=== PATIENT | female | born 1985 | race Caucasian/White ===

== ENCOUNTER 2016-12-20 20:17 | Emergency (ER) | payer SELFPAY ==
[~2016-12-20 20:17] MED LIST: MMW SS
[2016-12-20 20:19] VITALS: BP 171/103; PULSE 89; RESP 18; TEMP 98.7; O2SAT 98
[2016-12-20] MEDS ORDERED: ZITHTAB PO (21:43)
[2016-12-20] MEDS ORDERED: PRED50 PO (21:43)
[2016-12-20] MEDS ORDERED: VENTAER INH (21:43)
--- NOTE | 2016-12-20 21:43 | PD ---
HPI Chief Complaint: Cold / Flu Symptoms Time Seen by Provider: 21:28 Travel History International Travel<30 days: No Contact w/Intl Traveler<30days: No Traveled to known affect area: No History of Present Illness HPI 31-year-old female here for evaluation of cough, nasal congestion, shortness of breath. Symptoms of it going on for last 9 days. Today the patient feels even more congested and has been coughing up greenish sputum. No hemoptysis. She has had intermittent fevers and chills. No abdominal pain, nausea, vomiting, or diarrhea. PFSH Past Medical History Anemia: Yes Asthma: No Autoimmune Disease: No COPD: No Diminished Hearing: No Diverticulitis: Yes Musculoskeletal: Yes (SCOLIOSIS) Immunizations Current: Yes Tetanus Vaccination: Unknown Influenza Vaccination: No ?: Not LMP: 12/11/16 Ectopic : Yes Tubal Ligation: Yes Past Surgical History Cholecystectomy: Yes Social History Alcohol Use: Yes (SOCIALLY) Tobacco Use: No Substance Use: No Allergies-Medications (Allergen,Severity, Reaction): Coded Allergies: No Known Allergies (Verified , 12/20/16) Reported Meds & Prescriptions Reported Meds & Active Scripts Active Review of Systems Except as stated in HPI: all other systems reviewed are Neg Physical Exam Narrative GENERAL: Well-developed, well-nourished, comfortable, no apparent distress. SKIN: Focused skin assessment warm/dry. No petechiae. No rash. HEAD: Atraumatic. Normocephalic. EYES: Pupils equal and round. No scleral icterus. No injection or drainage. ENT: Mucous membranes pink and moist. Bilateral tympanic members and external auditory canals are normal. Normal pharynx. NECK: Trachea midline. No JVD. No nuchal rigidity. CARDIOVASCULAR: Regular rate and rhythm. No murmur appreciated. RESPIRATORY: No accessory muscle use. Clear to auscultation. Breath sounds equal bilaterally. GASTROINTESTINAL: Abdomen soft, non-tender, nondistended. MUSCULOSKELETAL: No obvious deformities. No clubbing. No cyanosis. No edema. NEUROLOGICAL: Awake and alert. No obvious cranial nerve deficits. Motor grossly within normal limits. Normal speech. PSYCHIATRIC: Appropriate mood and affect; insight and judgment normal. Data Data Last Documented VS Vital Signs Date Time Temp Pulse Resp B/P Pulse Ox O2 Delivery O2 Flow Rate FiO2 12/20/16 21:10 18 12/20/16 20:19 98.7 89 171/103 98 Room Air [facility] Medical Decision Making Medical Screen Exam Complete: Yes Emergency Medical Condition: Yes Medical Record Reviewed: Yes Differential Diagnosis Sinusitis, bronchitis, URI, pneumonia Narrative Course Vital signs show heart rate 89, blood pressure 171/103, pulse ox 98% on room air , oral temp of 98.7F. Patient signs and symptoms are consistent with sinusitis and possible bronchitis. Symptoms have been going on for last 9 days. Overall she is very comfortable, no respiratory distress. Lung sounds are clear and equal bilaterally. Plan is to start the patient on a Z-Rajat, prednisone, and albuterol inhaler. She is stable for discharge home with outpatient follow-up with a primary care physician this week. She was informed on when to return to the emergency department. She verbalizes understanding and agreement with plan. Diagnosis Primary Impression: Sinusitis Qualified Code: J01.90 - Subacute sinusitis, unspecified location Additional Impression: Bronchitis Referrals: Primary Care Physician 3 days Additional Instructions: Follow-up with a primary care physician this week. Return to the emergency department for worsening symptoms or any other concerns. Scripts Albuterol 18 GM Inh (Ventolin Hfa 18 GM Inh)90 Mcg/Act Aer2 Puff INH Q4-6H PRN ( SHORTNESS OF BREATH) #1 INHALER Ref 0 Prov:Yon Singh MD 12/20/16 Prednisone 50 Mg Tab50 Mg PO DAILY 5 Days Ref 0 Prov:Yon Singh MD 12/20/16 Azithromycin (Zithromax Z-Rajat)250 Mg Orvd096 Mg PO DIRECTED #1 DSPK Ref 0 500 MG (2 tabs) day 1, then 1 tab days 2-5. Prov:Yon Singh MD 12/20/16 Disposition: 01 DISCHARGE HOME Condition: Stable Yon Singh MD Dec 20, 2016 21:43
[2016-12-20] MEDS ORDERED: AZITHROMYCIN 250 MG TAB PO ONE (21:45)
[2016-12-20] MEDS ORDERED: predniSONE 50 MG TAB PO ONE (21:45)
== END 2016-12-20 22:13 | disposition home or self-care (01) ==
LOC: NEPD 20:17
DX: J32.9 Chronic sinusitis, unspecified (principal); J40 Bronchitis, not specified as acute or chronic; D64.9 Anemia, unspecified
CPT/HCPCS: 99284; J7512

== ENCOUNTER 2017-02-13 17:18 | Emergency (ER) | payer SELFPAY ==
[~2017-02-13] VITALS: Ht 170.2 cm; Wt 100.0 kg
[~2017-02-13 17:18] MED LIST changes: -MMW SS; +PRED50 PO; +VENTAER INH; +ZITHTAB PO
[2017-02-13 17:19] VITALS: BP 177/97; PULSE 66; RESP 14; TEMP 98.5; O2SAT 100
--- NOTE | 2017-02-13 17:33 | PD ---
Physical Exam Date Seen by Provider: Feb 13, 2017 Time Seen by Provider: 17:32 Narrative 31 YOWF C/O UPPER ABD PAIN.TIMES 2 WEEKS H/O DIVERTICULITIS VS REVIEWED WAITING FOR BED PLACEMENT Data Data Last Documented VS Vital Signs Date Time Temp Pulse Resp B/P Pulse Ox O2 Delivery O2 Flow Rate FiO2 02/13/17 17:19 98.5 66 14 177/97 100 Room Air MDM Supervised Visit with ZULMA: Adarsh Garcia Feb 13, 2017 17:33
[2017-02-13] MEDS ORDERED: NEXI40CA PO (20:33)
[2017-02-13] MEDS ORDERED: CLON0.2T PO (20:33)
[2017-02-13 20:36] VITALS: BP 170/114; PULSE 65; RESP 18; TEMP 98.3; O2SAT 100
--- NOTE | 2017-02-13 20:37 | PD ---
HPI . abdominal pain x 1 month Chief Complaint: Abdominal Pain Time Seen by Provider: 20:37 Travel History International Travel<30 days: No Contact w/Intl Traveler<30days: No Traveled to known affect area: No History of Present Illness HPI 31- year old female presents to the ED complaining of abdominal pain that is currently a 9/10. The patient reports that she had abdominal pain in her LLQ and epigastric areas for the past month, however, reports that the pain has been getting worse this week. She reports that she has nausea and vomiting for the past week. She states she eats barely one bite of food and then is full. She reports a bowel movement this morning, but she fluctuates between diarrhea and constipation. She has tried Tylenol, Aleve, and Advil for the pain but had no relief. She denies any vaginal discharge. Her last menstrual period is reported to be two weeks ago. The patient reports that she moved here from [place] last year and has been unable to follow up with a primary care provider in the area. She reports a history of a cholecystectomy, ectopic , tubal ligation, left ovary removal and diverticulosis. PFSH Past Medical History Anemia: Yes Asthma: No Autoimmune Disease: No COPD: No Diminished Hearing: No Diverticulitis: Yes Hypertension: Yes Musculoskeletal: Yes (SCOLIOSIS) Immunizations Current: Yes ?: Not Ectopic : Yes Tubal Ligation: Yes Past Surgical History Cholecystectomy: Yes Social History Alcohol Use: Yes (SOCIALLY) Tobacco Use: No Substance Use: No Allergies-Medications (Allergen,Severity, Reaction): Coded Allergies: No Known Allergies (Verified , 02/13/17) Reported Meds & Prescriptions Reported Meds & Active Scripts Active Zofran Odt (Ondansetron Odt) 4 Mg Tab 4 Mg SL Q8HR PRN Reported Clonidine (Clonidine HCl) 0.2 Mg Tab 0.2 Mg PO BID Nexium (Esomeprazole DR) 40 Mg Capdr 40 Mg PO DAILY Review of Systems General / Constitutional: No: Fever, Chills, Weight Gain, Weight Loss, Other Eyes: No: Diploplia, Blurred Vision, Photophobia, Drainage, Redness, Foreign Body Sensation, Pain, Tearing, Blind Spots, Visual changes, Blindness, Other HENT: No: Headaches, Vertigo, Lightheadedness, Sore Throat, Rhinitis, Rhinorrhea, Congestion, Nosebleed, Neck Stiffness, Neck Pain, Masses, Gingival Bleeding, Dental Difficulties, Ear Discharge, Earache, Other Cardiovascular: No: Chest Pain or Discomfort, Palpitations, Irregular Rhythm, Tachycardia, Diaphoresis, Syncope, Dyspnea on exertion, Varicosities, Edema, Cyanosis, Varicosities, Phlebitis, Claudication, Other Respiratory: No: Cough, Shortness of Breath, Wheezing, Sneezing, Orthopnea, Hemoptysis, Stridor, Night Sweats, Pleuritic Pain, Other Gastrointestinal: Positive: Nausea, Vomiting, Diarrhea, Abdominal Pain, Constipation, Other (Early satiety ) Genitourinary: No: Urgency, Frequency, Dysuria, Nocturia, Hematuria, Decreased Urinary Output, Oliguria, Hesitancy, Dribbling, Incontinence, Pelvic Pain, Flank Pain, Dyspareunia, Discharge, Dysmenorrhea, Menorrhagia, Metorrhagia, Vaginal Bleeding, Other Musculoskeletal: No: Myalgias, Arthralgias, Limited ROM, Weakness, Cramping, Edema, Pain, Atrophy, Other Skin: No Rash, No Itching, No Dryness, No Lumps, No Hives, No Change in Pigmentation, No Change in nails, No Alopecia, No Lesions, No Breast Lumps, No Breast Tenderness, No Breast Swelling, No Other Neurologic: No: Weakness, Dizziness, Syncope, Focal Abnormalities, Coordination Problem, Tremor, Ataxia, Headache, Change in Mentation, Slurred Speech, Paresthesia, Incontinence, Seizures, Sensory Disturbance, Other Psychiatric: No: Anxiety, Depression, Suicidal Ideations, Disorder of Thought, Mood Disorder, Substance Abuse, Homicidal Ideation, Other Endocrine: No: Heat Intolerance, Cold Intolerance, Polyuria, Polydipsia, Other Hematologic/Lymphatic: No: Easy Bruising, Lymph Node Enlargement, Other Physical Exam Narrative GENERAL: Appears comfortable in no signs of distress SKIN: Warm and dry. HEAD: Atraumatic. Normocephalic. EYES: Pupils equal and round. No scleral icterus. No injection or drainage. ENT: No nasal bleeding or discharge. Mucous membranes pink and moist. NECK: Trachea midline. No JVD. CARDIOVASCULAR: Regular rate and rhythm. No S3, S4, or murmurs. RESPIRATORY: No accessory muscle use. Clear to auscultation. Breath sounds equal bilaterally. No wheezing, rales, or rhonchi. GASTROINTESTINAL: Abdomen soft, non-tender, nondistended. No rebound or guarding. No Bailey sign or McBurney's point tenderness MUSCULOSKELETAL: Extremities without clubbing, cyanosis, or edema. No obvious deformities. NEUROLOGICAL: Awake and alert. No obvious cranial nerve deficits. Motor grossly within normal limits. Five out of 5 muscle strength in the arms and legs. Normal speech. PSYCHIATRIC: Appropriate mood and affect; insight and judgment normal. Data Data Last Documented VS Vital Signs Date Time Temp Pulse Resp B/P Pulse Ox O2 Delivery O2 Flow Rate FiO2 02/13/17 20:57 96 Room Air 02/13/17 20:36 98.3 65 18 170/114 Orders Complete Blood Count With Diff (02/13/17 20:40) Comprehensive Metabolic Panel (02/13/17 20:40) Lipase (02/13/17 20:40) Urinalysis - C+S If Indicated (02/13/17 20:40) Iv Access Insert/Monitor (02/13/17 20:40) Ecg Monitoring (02/13/17 20:40) Oximetry (02/13/17 20:40) Sodium Chloride 0.9% Flush (Ns Flush) (02/13/17 20:45) Ed Urine Pregnancytest Poc (02/13/17 20:40) Ct Abd/Pel W Iv Contrast(Rout) (02/13/17 20:43) Drug Screen, Random Urine (02/13/17 20:47) Iohexol 350 Inj (Omnipaque 350 Inj) (02/13/17 21:45) Ketorolac Inj (Toradol Inj) (02/13/17 22:15) Ondansetron Inj (Zofran Inj) (02/13/17 22:15) Labs Laboratory Tests Test 02/13/17 20:53 White Blood Count 8.4 TH/MM3 Red Blood Count 4.53 MIL/MM3 Hemoglobin 14.3 GM/DL Hematocrit 43.1 % Mean Corpuscular Volume 95.0 FL Mean Corpuscular Hemoglobin 31.5 PG Mean Corpuscular Hemoglobin 33.1 % Concent Red Cell Distribution Width 12.9 % Platelet Count 333 TH/MM3 Mean Platelet Volume 7.1 FL Neutrophils (%) (Auto) 66.9 % Lymphocytes (%) (Auto) 24.1 % Monocytes (%) (Auto) 6.2 % Eosinophils (%) (Auto) 2.3 % Basophils (%) (Auto) 0.5 % Neutrophils # (Auto) 5.6 TH/MM3 Lymphocytes # (Auto) 2.0 TH/MM3 Monocytes # (Auto) 0.5 TH/MM3 Eosinophils # (Auto) 0.2 TH/MM3 Basophils # (Auto) 0.0 TH/MM3 CBC Comment DIFF FINAL Differential Comment Urine Color YELLOW Urine Turbidity HAZY Urine pH 7.0 Urine Specific [place] 1.024 Urine Protein TRACE mg/dL Urine Glucose (UA) NEG mg/dL Urine Ketones NEG mg/dL Urine Occult Blood NEG Urine Nitrite NEG Urine Bilirubin NEG Urine Urobilinogen 2.0 MG/DL Urine Leukocyte Esterase NEG Urine RBC 14 /hpf Urine WBC 2 /hpf Urine Squamous Epithelial 5 /hpf Cells Urine Bacteria RARE /hpf Urine Mucus FEW /lpf Microscopic Urinalysis Comment CULT NOT INDICATED Sodium Level 137 MEQ/L Potassium Level 3.6 MEQ/L Chloride Level 102 MEQ/L Carbon Dioxide Level 30.1 MEQ/L Anion Gap 5 MEQ/L Blood Urea Nitrogen 9 MG/DL Creatinine 0.58 MG/DL Estimat Glomerular Filtration 120 ML/MIN Rate Random Glucose 80 MG/DL Calcium Level 8.8 MG/DL Total Bilirubin 0.5 MG/DL Aspartate Amino Transf 119 U/L (AST/SGOT) Alanine Aminotransferase 93 U/L (ALT/SGPT) Alkaline Phosphatase 101 U/L Total Protein 7.1 GM/DL Albumin 3.5 GM/DL Lipase 128 U/L Urine Opiates Screen NEG Urine Barbiturates Screen NEG Urine Amphetamines Screen NEG Urine Benzodiazepines Screen NEG Urine Cocaine Screen NEG Urine Cannabinoids Screen POS [facility] Medical Decision Making Medical Screen Exam Complete: Yes Emergency Medical Condition: Yes Medical Record Reviewed: Yes Differential Diagnosis Diverticulitis Colitis Gastroenteritis UTI Ovarian cyst Narrative Course 31-year-old female here with abdominal pain for one month. On examination there are no gross abnormalities. IV access obtained. Patient placed on continuous cardiac and pulse oximetry monitoring. Labs, urine and CT scan of abdomen and pelvis ordered. Last Impressions Abdomen/Pelvis CT 02/13/172042 Signed Impressions: Service Date/Time: Monday, February 13, 2017 21:28 - CONCLUSION: 1. Hepatic steatosis. 2. Mildly focally distended small bowel in the left upper quadrant involving the jejunum. 3. Mild cystic change of the ovaries being more prominent left. Joselito Nicole MD Laboratory Tests Test 02/13/17 20:53 White Blood Count 8.4 TH/MM3 Red Blood Count 4.53 MIL/MM3 Hemoglobin 14.3 GM/DL Hematocrit 43.1 % Mean Corpuscular Volume 95.0 FL Mean Corpuscular Hemoglobin 31.5 PG Mean Corpuscular Hemoglobin 33.1 % Concent Red Cell Distribution Width 12.9 % Platelet Count 333 TH/MM3 Mean Platelet Volume 7.1 FL Neutrophils (%) (Auto) 66.9 % Lymphocytes (%) (Auto) 24.1 % Monocytes (%) (Auto) 6.2 % Eosinophils (%) (Auto) 2.3 % Basophils (%) (Auto) 0.5 % Neutrophils # (Auto) 5.6 TH/MM3 Lymphocytes # (Auto) 2.0 TH/MM3 Monocytes # (Auto) 0.5 TH/MM3 Eosinophils # (Auto) 0.2 TH/MM3 Basophils # (Auto) 0.0 TH/MM3 CBC Comment DIFF FINAL Differential Comment Urine Color YELLOW Urine Turbidity HAZY Urine pH 7.0 Urine Specific [place] 1.024 Urine Protein TRACE mg/dL Urine Glucose (UA) NEG mg/dL Urine Ketones NEG mg/dL Urine Occult Blood NEG Urine Nitrite NEG Urine Bilirubin NEG Urine Urobilinogen 2.0 MG/DL Urine Leukocyte Esterase NEG Urine RBC 14 /hpf Urine WBC 2 /hpf Urine Squamous Epithelial 5 /hpf Cells Urine Bacteria RARE /hpf Urine Mucus FEW /lpf Microscopic Urinalysis Comment CULT NOT INDICATED Sodium Level 137 MEQ/L Potassium Level 3.6 MEQ/L Chloride Level 102 MEQ/L Carbon Dioxide Level 30.1 MEQ/L Anion Gap 5 MEQ/L Blood Urea Nitrogen 9 MG/DL Creatinine 0.58 MG/DL Estimat Glomerular Filtration 120 ML/MIN Rate Random Glucose 80 MG/DL Calcium Level 8.8 MG/DL Total Bilirubin 0.5 MG/DL Aspartate Amino Transf 119 U/L (AST/SGOT) Alanine Aminotransferase 93 U/L (ALT/SGPT) Alkaline Phosphatase 101 U/L Total Protein 7.1 GM/DL Albumin 3.5 GM/DL Lipase 128 U/L Labs and imaging have been reviewed. I discussed the case with my attending physician Dr. Ohara. On examination patient does not have any tenderness. He is not impressed with the CT findings. We recommend outpatient f/u. Discussed with patient. I will provide zofran upon discharge. Tylenol or Motrin PRN pain. Patient verbalized understanding of instructions, questions were answered, and thanked me for their care. I advised them if their condition worsens, please return to the nearest emergency room for further care. Diagnosis Primary Impression: Abdominal pain Qualified Code: R10.32 - Left lower quadrant pain Patient Instructions: General Instructions Additional Instructions: Please follow up with your primary care provider for further workup and treatment. Take medications as prescribed. Med/Other Pt SpecificInfo: Prescription(s) given Scripts Ondansetron Odt (Zofran Odt)4 Mg Tab4 Mg SL Q8HR PRN (Nausea/Vomiting) #15 TAB Ref 0 Prov:Harshad Ohara MD 02/13/17 Disposition: 01 DISCHARGE HOME Condition: Stable Jada Leblanc Feb 13, 2017 20:37
[2017-02-13] MEDS ORDERED: SODIUM CHLORIDE 0.9% FLUSH 10 ML FLUSH IV FLUSH PRN (20:45)
[2017-02-13 20:57] VITALS: O2SAT 96
[2017-02-13 21:22] LABS: AUTOMATED NEUTROPHIL # 5.6 TH/MM3 (1.8-7.7); BACTERIA, URINE RARE /hpf; BASOPHIL % 0.5 % (0.0-2.0); BLOOD, URINE NEG (NEG); COMMENT (UR) CULT NOT INDICATED; CULTURE IF INDICATED CULT NOT INDICATED; EOSINOPHIL # 0.2 TH/MM3 (0-0.4); EOSINOPHIL % 2.3 % (0.0-4.0); GLUCOSE,URINE NEG (NEG); HEMATOCRIT 43.1 % (35.0-46.0); HEMO FLAGS DIFF FINAL; KETONE, URINE NEG (NEG); LYMPH % 24.1 % (9.0-44.0); MEAN CORPUSCULAR HEMOGLOBIN 31.5 PG (27.0-34.0); MEAN CORPUSCULAR HGB CONC 33.1 % (32.0-36.0); MONO % 6.2 % (0.0-8.0); MUCUS URINE FEW /lpf (OCC); NEUT % 66.9 % (16.0-70.0); NITRITE,URINE NEG (NEG); PLATELET COUNT 333 TH/MM3 (150-450); RED BLOOD COUNT 4.53 MIL/MM3 (4.00-5.30); RED CELL DISTRIBUTION WIDTH 12.9 % (11.6-17.2); SQUAMOUS EPITHELIAL CELL URINE 5 /hpf (0-5); URINE COLOR YELLOW (YELLW/STRAW); WHITE BLOOD COUNT 8.4 TH/MM3 (4.0-11.0)
[2017-02-13 21:40] LABS: ANION GAP 5 MEQ/L (5-15); AST (GOT) 119 U/L (15-37); BICARBONATE 30.1 MEQ/L (21.0-32.0); BLOOD UREA NITROGEN 9 MG/DL (7-18); CHLORIDE 102 MEQ/L (98-107); GLOMERULAR FILTRATION RATE 120 ML/MIN (>89); POTASSIUM 3.6 MEQ/L (3.5-5.1); SODIUM (NA) 137 MEQ/L (136-145)
[2017-02-13 21:41] LABS: ALT (GPT) 93 U/L (10-53)
[2017-02-13 21:43] LABS: ALKALINE PHOSPHATASE 101 U/L (45-117); TOTAL BILIRUBIN ADULT 0.5 MG/DL (0.2-1.0)
[2017-02-13] MEDS ORDERED: IOHEXOL 350 MG/ML 10 ML VIAL (for RAD DIAG) IV ONE (21:45)
--- NOTE | 2017-02-13 22:13 | RADRPT ---
EXAM DATE/TIME: 02/13/2017 21:28 [facility] COMPARISON: No previous studies available for comparison. INDICATIONS : Diffuse abdominal pain, nausea and vomiting. IV CONTRAST: 100 cc Omnipaque 350 (iohexol) IV ORAL CONTRAST: No oral contrast ingested. RADIATION DOSE: 13.9 CTDIvol (mGy) MEDICAL HISTORY : Hypertension. Diverticulitis. SURGICAL HISTORY : Cholecystectomy. Tubal ligation. ENCOUNTER: Initial ACUITY: 2 weeks PAIN SCALE: 9/10 LOCATION: All quadrants. TECHNIQUE: Volumetric scanning of the abdomen and pelvis was performed. Using automated exposure control and ad justment of the mA and/or kV according to patient size, radiation dose was kept as low as reasonably achievable to obtain optimal diagnostic quality images. DICOM format image data is available electro nically for review and comparison. FINDINGS: LOWER LUNGS: The visualized lower lungs are clear. LIVER: There is diffuse decreased attenuation to the liver without focal masses. The patient is status post cholecystectomy. SPLEEN: Normal size without lesion. PANCREAS: Within normal limits. KIDNEYS: Normal in size and shape. There is no mass, stone or hydronephrosis. ADRENAL GLANDS: Within normal limits. VASCULAR: There is no aortic aneurysm. BOWEL/MESENTERY: There is a mild hiatal hernia. There is focal mildly distended small bowel in the left upper quadrant measuring up to 3.5 cm. ABDOMINAL WALL: Within normal limits. RETROPERITONEUM: There is no lymphadenopathy. BLADDER: No wall thickening or mass. REPRODUCTIVE: The left ovary appears somewhat prominent measuring 3.5 cm with cystic change. The right ovary is nor mal in size with minimal cystic change. The uterus is unremarkable. INGUINAL: There is no lymphadenopathy or hernia. MUSCULOSKELETAL: There is a levocurvature of the lower thoracic and lumbar spine. CONCLUSION: 1. Hepatic steatosis. 2. Mildly focally distended small bowel in the left upper quadrant involving the jejunum. 3. Mild cystic change of the ovaries being more prominent left. Joselito Nicole MD on February 13, 2017 at 22:06 Board Certified Radiologist. This report was verified electronically.
[2017-02-13] MEDS ORDERED: ONDANSETRON HCL 4 MG/2 ML VIAL IV PUSH ONE (22:15)
[2017-02-13] MEDS ORDERED: KETOROLAC TROMETHAMINE 30 MG/ML (IVP) VIAL IV PUSH ONE (22:15)
[2017-02-13] MEDS ORDERED: ZOFR4TAB3 SL (22:28)
== END 2017-02-13 23:07 | disposition home or self-care (01) ==
LOC: NEPC 17:18
DX: R10.32 Left lower quadrant pain (principal); I10 Essential (primary) hypertension; Z90.49 Acquired absence of other specified parts of digestive tract
CPT/HCPCS: 74177; 80053; 80307; 81001; 83690; 84703; 85025; 96374; 96375; 99285; J1885; J2405; Q9967

== ENCOUNTER 2017-06-13 09:00 | Emergency (ER) | payer SELFPAY ==
[~2017-06-13 09:00] MED LIST changes: +CLON0.2T PO; +NEXI40CA PO; -PRED50 PO; -VENTAER INH; -ZITHTAB PO; +ZOFR4TAB3 SL
[2017-06-13 09:11] VITALS: BP 173/95; PULSE 74; RESP 18; TEMP 98.1; O2SAT 100
[2017-06-13] MEDS ORDERED: HYDROcodone 5 MG/HOMATROPINE 1.5 MG SYRUP 5 ML CUP PO ONE (09:45)
--- NOTE | 2017-06-13 09:48 | RADRPT ---
EXAM DATE/TIME: 06/13/2017 09:33 [facility] COMPARISON: No previous studies available for comparison. INDICATIONS : Cough x 10 days. MEDICAL HISTORY : Hypertension. Diverticulitis. SURGICAL HISTORY : Cholecystectomy. Tubal ligation. ENCOUNTER: Initial ACUITY: 1 day PAIN SCORE: 0/10 LOCATION: Bilateral chest FINDINGS: PA and lateral views of the chest demonstrate the lungs to be symmetrically aerated without evidence of mass, infiltrate or effusion. The cardiomediastinal contours are unremarkable. Thoracic scoliosis is noted. Osseous structures are otherwise intact. CONCLUSION: No acute disease. Payam Reid MD on June 13, 2017 at 9:45 Board Certified Radiologist. This report was verified electronically.
--- NOTE | 2017-06-13 09:48 | PD ---
HPI Chief Complaint: Respiratory Symptoms Time Seen by Provider: 09:21 Travel History International Travel<30 days: No Contact w/Intl Traveler<30days: No Traveled to known affect area: No History of Present Illness HPI for past 8 days, cough, initially dry now productive of green sputum and over last 2 days crackly voice. patient denies any alleviating/aggravating factors....denies assoc factors of fever/pleitez/cp/abdpain/back pain/n/v/d/ chart and rn notes reviewed pcp: all:nkda divertic, pna denies pshx PFSH Past Medical History Anemia: Yes Asthma: No Autoimmune Disease: No COPD: No Diminished Hearing: No Diverticulitis: Yes Hypertension: Yes Musculoskeletal: Yes (SCOLIOSIS) Immunizations Current: Yes Ectopic : Yes Tubal Ligation: Yes Past Surgical History Cholecystectomy: Yes Social History Alcohol Use: Yes (SOCIALLY) Tobacco Use: No Substance Use: No Allergies-Medications (Allergen,Severity, Reaction): Coded Allergies: No Known Allergies (Verified , 02/13/17) Reported Meds & Prescriptions Reported Meds & Active Scripts Active Zofran Odt (Ondansetron Odt) 4 Mg Tab 4 Mg SL Q8HR PRN Reported Clonidine (Clonidine HCl) 0.2 Mg Tab 0.2 Mg PO BID Nexium (Esomeprazole DR) 40 Mg Capdr 40 Mg PO DAILY Review of Systems Except as stated in HPI: all other systems reviewed are Neg General / Constitutional: No: Fever Eyes: No: Visual changes HENT: No: Headaches Cardiovascular: No: Chest Pain or Discomfort Respiratory: Positive: Cough, Wheezing Gastrointestinal: No: Abdominal Pain Genitourinary: No: Dysuria Musculoskeletal: No: Pain Skin: No Rash Neurologic: No: Weakness Psychiatric: No: Depression Endocrine: No: Polydipsia Hematologic/Lymphatic: No: Easy Bruising Physical Exam Narrative GENERAL: SKIN: Warm and dry. HEAD: Atraumatic. Normocephalic. EYES: Pupils equal and round. No scleral icterus. No injection or drainage. ENT: No nasal bleeding or discharge. Mucous membranes pink and moist. NECK: Trachea midline. No JVD. CARDIOVASCULAR: Regular rate and rhythm. RESPIRATORY: No accessory muscle use. mild scattered wheezes with good tv Breath sounds equal bilaterally. GASTROINTESTINAL: Abdomen soft, non-tender, nondistended. MUSCULOSKELETAL: Extremities without clubbing, cyanosis, or edema. No obvious deformities. NEUROLOGICAL: Awake and alert. No obvious cranial nerve deficits. Motor grossly within normal limits. Five out of 5 muscle strength in the arms and legs. Normal speech. PSYCHIATRIC: Appropriate mood and affect; insight and judgment normal. Data Data Last Documented VS Vital Signs Date Time Temp Pulse Resp B/P (MAP) Pulse Ox O2 Delivery O2 Flow Rate FiO2 06/13/17 09:11 98.1 74 18 173/95 (121) 100 Room Air Orders Orders Chest, Pa & Lat (06/13/17 09:21) Hydrocodone-Homatropine Liq (Hycodan Liq (06/13/17 09:45) MDM Medical Decision Making Medical Screen Exam Complete: Yes Emergency Medical Condition: Yes Medical Record Reviewed: Yes Differential Diagnosis uri v pna v bronchitis v laryngitis Narrative Course patient Diagnosis Primary Impression: Acute laryngitis Additional Impression: Subacute bronchitis Patient Instructions: Acute Bronchitis (ED), General Instructions, Laryngitis ( ED) Scripts Albuterol 18 GM Inh (Ventolin Hfa 18 GM Inh) 90 Mcg/Act Aer 1 PUFF INH Q4H Y for SHORTNESS OF BREATH, #1 INHALER 0 Refills Prov: Harshad Ohara MD 06/13/17 Guaifenesin-Codeine Liq (Guaifenesin AC Liq) 100-10 Mg/5 Ml Syrp 10 ML PO Q4H Y for COUGH, #1 BOTTLE 0 Refills Prov: Harshad Ohara MD 06/13/17 Azithromycin (Zithromax Z-Rajat) 250 Mg Dspk 250 MG PO DIRECTED for Infection, #1 DSPK 0 Refills 500 MG (2 tabs) day 1, then 1 tab days 2-5. Prov: Harshad Ohara MD 06/13/17 Disposition: 01 DISCHARGE HOME Condition: Stable Harshad Ohara MD Jun 13, 2017 09:48
[2017-06-13] MEDS ORDERED: ZITHTAB PO (10:33)
[2017-06-13] MEDS ORDERED: GUAISYP4 PO (10:33)
[2017-06-13] MEDS ORDERED: VENTAER INH (10:33)
== END 2017-06-13 11:16 | disposition home or self-care (01) ==
LOC: NEPD 09:00
DX: J04.0 Acute laryngitis (principal); J20.9 Acute bronchitis, unspecified; I10 Essential (primary) hypertension
CPT/HCPCS: 71020; 99285

== ENCOUNTER 2017-10-08 14:02 | Emergency (ER) | payer SELFPAY ==
[~2017-10-08] VITALS: Ht 170.2 cm; Wt 99.0 kg
[~2017-10-08 14:02] MED LIST changes: +GUAISYP4 PO; +VENTAER INH; +ZITHTAB PO
[2017-10-08 14:32] VITALS: BP 138/91; PULSE 71; RESP 16; TEMP 98.8; O2SAT 96
[2017-10-08] MEDS ORDERED: SODIUM CHLOR 0.9% 1000 ML INJ 1,000 ML IV ONE (14:45)
[2017-10-08] MEDS ORDERED: ONDANSETRON HCL 4 MG/2 ML VIAL IVP ONE (14:45)
[2017-10-08] MEDS ORDERED: SODIUM CHLORIDE 0.9% FLUSH 10 ML FLUSH IVF PRN (14:45)
[2017-10-08 14:59] LABS: BILIRUBIN, URINE NEG (NEG); BLOOD, URINE NEG (NEG); GLUCOSE,URINE 100 mg/dL (NEG); KETONE, URINE 15 mg/dL (NEG); NITRITE,URINE POS (NEG); PH, URINE 6.5 (5.0-8.5); URINE LEUKOCYTE ESTERASE TRACE (NEG)
[2017-10-08 15:02] VITALS: RESP 16; O2SAT 96
--- NOTE | 2017-10-08 15:08 | PD ---
HPI Chief Complaint: Dizziness Time Seen by Provider: 14:36 Travel History International Travel<30 days: No Contact w/Intl Traveler<30days: No Traveled to known affect area: No History of Present Illness HPI 31 yo F c/o nausea and vomiting. Today the patient became lightheaded and disoriented. She reports similar symptoms occurred about 3 days ago. The patient started Cipro last night believing that she might have a urinary tract infection. No loss of consciousness. No chest pain or shortness of breath. No abdominal pain. PFSH Past Medical History Anemia: Yes Asthma: No Autoimmune Disease: No COPD: No Diabetes: No Patient Takes Glucophage: No Diminished Hearing: No Diverticulitis: Yes Hypertension: Yes Musculoskeletal: Yes (SCOLIOSIS) Respiratory: No Immunizations Current: Yes Tetanus Vaccination: Unknown ?: Not LMP: tubal Ectopic : Yes Tubal Ligation: Yes Past Surgical History Cholecystectomy: Yes Social History Alcohol Use: Yes (SOCIALLY) Tobacco Use: No Substance Use: No Allergies-Medications (Allergen,Severity, Reaction): Coded Allergies: No Known Allergies (Verified Adverse Reaction, Unknown, 10/08/17) Reported Meds & Prescriptions Reported Meds & Active Scripts Active Zofran Odt (Ondansetron Odt) 4 Mg Tab 4 Mg SL Q8HR PRN Cipro (Ciprofloxacin HCl) 500 Mg Tab 500 Mg PO BID 3 Days Reported Clonidine (Clonidine HCl) 0.2 Mg Tab 0.2 Mg PO BID Nexium (Esomeprazole DR) 40 Mg Capdr 40 Mg PO DAILY Review of Systems Except as stated in HPI: all other systems reviewed are Neg General / Constitutional: No: Fever Physical Exam Narrative GENERAL: 31-year-old female pleasant well-nourished well-developed Vital Signs Date Time Temp Pulse Resp B/P (MAP) Pulse Ox O2 Delivery O2 Flow Rate FiO2 10/08/17 15:02 16 96 Room Air 10/08/17 14:38 16 96 Room Air 10/08/17 14:32 98.8 71 16 138/91 (107) 96 SKIN: Warm and dry. HEAD: Atraumatic. Normocephalic. EYES: Pupils equal and round. No scleral icterus. No injection or drainage. No nystagmus. ENT: No nasal bleeding or discharge. Mucous membranes pink and moist. NECK: Trachea midline. No JVD. CARDIOVASCULAR: Regular rate and rhythm. RESPIRATORY: No accessory muscle use. Clear to auscultation. Breath sounds equal bilaterally. GASTROINTESTINAL: Abdomen soft, non-tender, nondistended. Hepatic and splenic margins not palpable. MUSCULOSKELETAL: Extremities without clubbing, cyanosis, or edema. No obvious deformities. NEUROLOGICAL: Awake and alert. No obvious cranial nerve deficits. Motor grossly within normal limits. Five out of 5 muscle strength in the arms and legs. Normal speech. PSYCHIATRIC: Appropriate mood and affect; insight and judgment normal. Data Data Last Documented VS Vital Signs Date Time Temp Pulse Resp B/P (MAP) Pulse Ox O2 Delivery O2 Flow Rate FiO2 10/08/17 15:02 16 96 Room Air 10/08/17 14:32 98.8 71 138/91 (107) Orders Orders Urinalysis - C+S If Indicated (10/08/17 14:42) Ed Urine Pregnancytest Poc (10/08/17 14:42) Electrocardiogram (10/08/17 14:45) Basic Metabolic Panel (Bmp) (10/08/17 14:45) Complete Blood Count With Diff (10/08/17 14:45) Ecg Monitoring (10/08/17 14:45) Iv Access Insert/Monitor (10/08/17 14:45) Oximetry (10/08/17 14:45) Ondansetron Inj (Zofran Inj) (10/08/17 14:45) Sodium Chloride 0.9% Flush (Ns Flush) (10/08/17 14:45) Sodium Chlor 0.9% 1000 Ml Inj (Ns 1000 M (10/08/17 14:45) Ceftriaxone Inj (Rocephin Inj) (10/08/17 15:45) Electrocardiogram (10/08/17 ) Ed Discharge Order (10/08/17 16:04) Labs Laboratory Tests Test 10/08/17 14:45 10/08/17 15:00 Urine Color ORANGE Urine Turbidity CLEAR Urine pH 6.5 Urine Specific [place] 1.025 Urine Protein 100 mg/dL Urine Glucose (UA) 100 mg/dL Urine Ketones 15 mg/dL Urine Occult Blood NEG Urine Nitrite POS Urine Bilirubin NEG Urine Urobilinogen 4.0 MG/DL Urine Leukocyte Esterase TRACE Urine RBC 0-3 /hpf Urine WBC 3-5 /hpf Urine Squamous Epithelial Cells 6-8 /hpf Microscopic Urinalysis Comment CULT NOT INDICATED White Blood Count 8.2 TH/MM3 Red Blood Count 4.11 MIL/MM3 Hemoglobin 12.8 GM/DL Hematocrit 37.8 % Mean Corpuscular Volume 92.1 FL Mean Corpuscular Hemoglobin 31.2 PG Mean Corpuscular Hemoglobin Concent 33.9 % Red Cell Distribution Width 11.8 % Platelet Count 320 TH/MM3 Mean Platelet Volume 6.8 FL Neutrophils (%) (Auto) 73.1 % Lymphocytes (%) (Auto) 18.2 % Monocytes (%) (Auto) 6.0 % Eosinophils (%) (Auto) 2.4 % Basophils (%) (Auto) 0.3 % Neutrophils # (Auto) 6.0 TH/MM3 Lymphocytes # (Auto) 1.5 TH/MM3 Monocytes # (Auto) 0.5 TH/MM3 Eosinophils # (Auto) 0.2 TH/MM3 Basophils # (Auto) 0.0 TH/MM3 CBC Comment DIFF FINAL Differential Comment Blood Urea Nitrogen 13 MG/DL Creatinine 0.67 MG/DL Random Glucose 97 MG/DL Calcium Level 8.8 MG/DL Sodium Level 138 MEQ/L Potassium Level 4.0 MEQ/L Chloride Level 105 MEQ/L Carbon Dioxide Level 25.7 MEQ/L Anion Gap 7 MEQ/L Estimat Glomerular Filtration Rate 101 ML/MIN MDM Medical Decision Making Medical Screen Exam Complete: Yes Emergency Medical Condition: Yes Differential Diagnosis Anemia, UTI, metabolic disarray, vertigo Narrative Course CBC & BMP Diagram 10/08/17 15:00 Calcium Level 8.8 EKG shows a sinus rhythm without ischemic injury pattern, rate 70 Urine negative Urinalysis shows a UTI with nitrites The patient received Rocephin and Cipro Zofran and a liter of normal saline. Reassessment at about 4:30 PM revealed patient feeling much better with normal vital signs. Scripts as below. Diagnosis Primary Impression: Nausea & vomiting Qualified Codes: R11.2 - Nausea with vomiting, unspecified Additional Impressions: Lightheadedness UTI (urinary tract infection) Qualified Codes: N30.00 - Acute cystitis without hematuria Referrals: Primary Care Physician 2 days Med/Other Pt SpecificInfo: Prescription(s) given Scripts Ondansetron Odt (Zofran Odt) 4 Mg Tab 4 MG SL Q8HR Y for NAUSEA OR VOMITING, #8 TAB 0 Refills Prov: Rudy Casiano MD 10/08/17 Ciprofloxacin (Cipro) 500 Mg Tab 500 MG PO BID for Infection for 3 Days, #6 TAB 0 Refills Prov: Rudy Casiano MD 10/08/17 Disposition: 01 DISCHARGE HOME Condition: Stable Rudy Casiano MD Oct 08, 2017 15:08
[2017-10-08 15:09] LABS: BASOPHIL % 0.3 % (0.0-2.0); EOSINOPHIL # 0.2 TH/MM3 (0-0.4); EOSINOPHIL % 2.4 % (0.0-4.0); HEMATOCRIT 37.8 % (35.0-46.0); HEMOGLOBIN 12.8 GM/DL (11.6-15.3); LYMPH % 18.2 % (9.0-44.0); LYMPHOCYTE # 1.5 TH/MM3 (1.0-4.8); MEAN CELL VOLUME 92.1 FL (80.0-100.0); MEAN CORPUSCULAR HEMOGLOBIN 31.2 PG (27.0-34.0); MEAN CORPUSCULAR HGB CONC 33.9 % (32.0-36.0); MEAN PLATELET VOLUME 6.8 FL (7.0-11.0); MONOCYTE # 0.5 TH/MM3 (0-0.9); NEUT % 73.1 % (16.0-70.0); PLATELET COUNT 320 TH/MM3 (150-450); RED BLOOD COUNT 4.11 MIL/MM3 (4.00-5.30); RED CELL DISTRIBUTION WIDTH 11.8 % (11.6-17.2); WHITE BLOOD COUNT 8.2 TH/MM3 (4.0-11.0)
[2017-10-08 15:19] LABS: BICARBONATE 25.7 MEQ/L (21.0-32.0); CALCIUM 8.8 MG/DL (8.5-10.1)
[2017-10-08 15:23] LABS: CREATININE 0.67 MG/DL (0.50-1.00)
[2017-10-08 15:25] LABS: URINE COLOR ORANGE (YELLW/STRAW)
[2017-10-08 15:29] LABS: RBC, URINE 0-3 /hpf (0-3)
[2017-10-08] MEDS ORDERED: cefTRIAXone INJ 1,000 MG in SODIUM CHLORIDE 0.9% INJ 100 ML IV ONE (15:45)
[2017-10-08] MEDS ORDERED: CIPR-9 PO (16:06)
[2017-10-08] MEDS ORDERED: ZOFR4TAB3 SL (16:06)
--- NOTE | 2017-10-09 21:34 | EKG ---
Date Performed: 10/08/2017 Time Performed: 15:44:20 PTAGE: 31 years EKG: Sinus rhythm MINIMAL VOLTAGE CRITERIA FOR LVH, CONSIDER NORMAL VARIANT BORDERLINE ECG PREVIOUS TRACING : 10/08/2017 15.27 Since the previous tracing, no significant change noted DOCTOR: Kameron Jones Interpretating Date/Time 10/09/2017 21:33:03
--- NOTE | 2017-10-09 21:35 | EKG ---
Date Performed: 10/08/2017 Time Performed: 15:27:30 PTAGE: 31 years EKG: Sinus rhythm NO PREVIOUS TRACING DOCTOR: Kameron Jones Interpretating Date/Time 10/09/2017 21:34:20
== END 2017-10-08 17:01 | disposition home or self-care (01) ==
LOC: PHED 14:02
DX: R11.2 Nausea with vomiting, unspecified (principal); R42 Dizziness and giddiness; R41.0 Disorientation, unspecified; N39.0 Urinary tract infection, site not specified; D64.9 Anemia, unspecified; I10 Essential (primary) hypertension; M41.9 Scoliosis, unspecified
CPT/HCPCS: 80048; 81001; 84703; 85025; 93005; 96361; 96365; 96375; 99284; J0696; J2405; J7030

== ENCOUNTER 2017-11-12 18:16 | Emergency (ER) | payer SELFPAY ==
[~2017-11-12] VITALS: Ht 170.2 cm; Wt 95.5 kg
[~2017-11-12 18:16] MED LIST changes: +CIPR-9 PO; -GUAISYP4 PO; -VENTAER INH; -ZITHTAB PO
[2017-11-12 18:25] VITALS: BP 177/86; PULSE 62; RESP 18; TEMP 98.8; O2SAT 99
[2017-11-12] MEDS ORDERED: BUPR1SUB SL (18:37)
[2017-11-12] MEDS ORDERED: SODIUM CHLOR 0.9% 1000 ML INJ 1,000 ML IV SCH (18:46)
[2017-11-12 18:51] VITALS: RESP 17; O2SAT 99
[2017-11-12] MEDS ORDERED: LIDOCAINE VISCOUS 2% SOLN 15 ML UDC PO ONE (19:00)
[2017-11-12] MEDS ORDERED: PANTOPRAZOLE SODIUM 40 MG VIAL IVP ONE (19:00)
[2017-11-12] MEDS ORDERED: SODIUM CHLORIDE 0.9% FLUSH 10 ML FLUSH IV FLUSH PRN (19:00)
[2017-11-12] MEDS ORDERED: ONDANSETRON ODT 4 MG TAB PO ONE (19:00)
[2017-11-12] MEDS ORDERED: ALUMINUM/MAGNESIUM/SIMETH 30 ML CUP PO ONE (19:00)
--- NOTE | 2017-11-12 19:00 | PD ---
HPI Chief Complaint: Abdominal Pain Time Seen by Provider: 18:35 Travel History International Travel<30 days: No Contact w/Intl Traveler<30days: No Traveled to known affect area: No History of Present Illness HPI Examined in the presence of a female nurse. 31-year-old female presents for evaluation of abdominal pain. Symptoms started 2 weeks ago. Pain is a sharp pain primarily in the left upper region of her abdomen. Pain is constant with no obvious aggravating or alleviating factors. He does not appear to be postprandial. She endorses associated nausea, vomiting. She reports that she has noticed some blood in her emesis. She reports occasional subjective fevers. Denies dysuria, flank pain, vaginal bleeding or discharge, hematuria, cough, congestion, chest pain or shortness of breath. She reports history of diverticulitis in the past. She reports history of cholecystectomy. She reports that she does use ibuprofen on a daily basis. No known history of peptic ulcer disease or GERD. No known history of pancreatitis. No other complaints. PFSH Past Medical History Anemia: Yes Asthma: No Autoimmune Disease: No Cardiovascular Problems: Yes COPD: No Diabetes: No Diminished Hearing: No Diverticulitis: Yes Gastrointestinal Disorders: Yes Hypertension: Yes Musculoskeletal: Yes (SCOLIOSIS) Respiratory: No Immunizations Current: Yes Tetanus Vaccination: < 5 Years Influenza Vaccination: No ?: Not LMP: 11/05/17 : 4 Para: 4 Miscarriage: 1 Ectopic : Yes Tubal Ligation: Yes Past Surgical History Cholecystectomy: Yes Social History Alcohol Use: Yes (SOCIALLY) Tobacco Use: No Substance Use: No Allergies-Medications (Allergen,Severity, Reaction): Coded Allergies: No Known Allergies (Verified Adverse Reaction, Unknown, 11/12/17) Reported Meds & Prescriptions Reported Meds & Active Scripts Active Zofran (Ondansetron HCl) 4 Mg Tab 4 Mg PO Q6HR PRN Protonix (Pantoprazole Sodium) 40 Mg Tab 40 Mg PO DAILY Reported Zubsolv (Buprenorphine-Naloxone) 5.7-1.4 Mg Subl 1 Tab SL BID Clonidine (Clonidine HCl) 0.2 Mg Tab 0.2 Mg PO BID Nexium (Esomeprazole DR) 40 Mg Capdr 40 Mg PO DAILY Review of Systems Except as stated in HPI: all other systems reviewed are Neg Physical Exam Narrative GENERAL: Well-developed well-nourished female no acute distress SKIN: Warm and dry. HEAD: Atraumatic. Normocephalic. EYES: Pupils equal and round. No scleral icterus. No injection or drainage. ENT: No nasal bleeding or discharge. Mucous membranes pink and moist. NECK: Trachea midline. No JVD. CARDIOVASCULAR: Regular rate and rhythm. No murmur appreciated. RESPIRATORY: No accessory muscle use. Clear to auscultation. Breath sounds equal bilaterally. GASTROINTESTINAL: Abdomen soft, left upper quadrant tenderness to palpation or guarding. MUSCULOSKELETAL: No obvious deformities. No clubbing. No cyanosis. No edema. NEUROLOGICAL: Awake and alert. No obvious cranial nerve deficits. Motor grossly within normal limits. Normal speech. Data Data Last Documented VS Vital Signs Date Time Temp Pulse Resp B/P (MAP) Pulse Ox O2 Delivery O2 Flow Rate FiO2 11/12/17 19:16 68 16 118/57 (77) 98 Room Air 11/12/17 18:25 98.8 Orders Orders Complete Blood Count With Diff (11/12/17 18:46) Comprehensive Metabolic Panel (11/12/17 18:46) Lipase (11/12/17 18:46) Urinalysis - C+S If Indicated (11/12/17 18:46) Ct Abd/Pel W Iv Contrast(Rout) (11/12/17 18:46) Iv Access Insert/Monitor (11/12/17 18:46) Ecg Monitoring (11/12/17 18:46) Oximetry (11/12/17 18:46) Pantoprazole Inj (Protonix Inj) (11/12/17 19:00) Sodium Chlor 0.9% 1000 Ml Inj (Ns 1000 M (11/12/17 18:46) Sodium Chloride 0.9% Flush (Ns Flush) (11/12/17 19:00) Al-Mag Hy-Si 40-40-4 Mg/Ml Liq (Mag-Al P (11/12/17 19:00) Lidocaine 2% Viscous (Xylocaine 2% Visco (11/12/17 19:00) Ed Urine Pregnancytest Poc (11/12/17 18:46) Ondansetron Odt (Zofran Odt) (11/12/17 19:00) Iohexol 350 Inj (Omnipaque 350 Inj) (11/12/17 19:45) Ed Discharge Order (11/12/17 21:21) Labs Laboratory Tests Test 11/12/17 18:50 11/12/17 18:55 White Blood Count 9.7 TH/MM3 Red Blood Count 4.10 MIL/MM3 Hemoglobin 12.8 GM/DL Hematocrit 37.8 % Mean Corpuscular Volume 92.2 FL Mean Corpuscular Hemoglobin 31.1 PG Mean Corpuscular Hemoglobin Concent 33.8 % Red Cell Distribution Width 12.7 % Platelet Count 338 TH/MM3 Mean Platelet Volume 7.4 FL Neutrophils (%) (Auto) 65.1 % Lymphocytes (%) (Auto) 25.3 % Monocytes (%) (Auto) 6.9 % Eosinophils (%) (Auto) 2.1 % Basophils (%) (Auto) 0.6 % Neutrophils # (Auto) 6.3 TH/MM3 Lymphocytes # (Auto) 2.4 TH/MM3 Monocytes # (Auto) 0.7 TH/MM3 Eosinophils # (Auto) 0.2 TH/MM3 Basophils # (Auto) 0.1 TH/MM3 CBC Comment DIFF FINAL Differential Comment Blood Urea Nitrogen 12 MG/DL Creatinine 0.65 MG/DL Random Glucose 94 MG/DL Total Protein 7.8 GM/DL Albumin 3.9 GM/DL Calcium Level 9.3 MG/DL Alkaline Phosphatase 107 U/L Aspartate Amino Transf (AST/SGOT) 148 U/L Alanine Aminotransferase (ALT/SGPT) 116 U/L Total Bilirubin 0.5 MG/DL Sodium Level 140 MEQ/L Potassium Level 4.1 MEQ/L Chloride Level 102 MEQ/L Carbon Dioxide Level 29.1 MEQ/L Anion Gap 9 MEQ/L Estimat Glomerular Filtration Rate 105 ML/MIN Lipase 163 U/L Urine Color LIGHT-YELLOW Urine Turbidity CLEAR Urine pH 7.0 Urine Specific [place] 1.006 Urine Protein NEG mg/dL Urine Glucose (UA) NEG mg/dL Urine Ketones NEG mg/dL Urine Occult Blood NEG Urine Nitrite NEG Urine Bilirubin NEG Urine Urobilinogen LESS THAN 2.0 MG/DL Urine Leukocyte Esterase NEG Urine WBC LESS THAN 1 /hpf Urine Squamous Epithelial Cells <1 /hpf Microscopic Urinalysis Comment CULT NOT INDICATED MDM Medical Decision Making Medical Screen Exam Complete: Yes Emergency Medical Condition: Yes Medical Record Reviewed: Yes Differential Diagnosis Peptic ulcer disease, pancreatitis, colitis, diverticulitis, pyelonephritis Narrative Course Plan is for lab work, urinalysis, CT abdomen and pelvis. She will be given IV fluids, antiemetics, Protonix, GI cocktail. Lab work and imaging studies are reassuring. Liver enzymes are mildly elevated , she has had elevated liver enzymes in the past. CT of the pelvis reveals no acute findings. CT imaging of the abdomen pelvis from January 2017 revealed mild hepatic steatosis, this may be the etiology of her elevated liver enzymes. Her symptoms are most likely secondary to peptic ulcer disease. At this point in time the plan will be to discharge her with Protonix, outpatient GI follow-up. She is agreeable. Diagnosis Primary Impression: Abdominal pain Additional Impression: Elevated liver enzymes Referrals: Jie Flores MD Additional Instructions: Medication as prescribed. Avoid ibuprofen products. Follow-up with a corporate pilot such as Dr. Flores return for any emergent medical conditions. Med/Other Pt SpecificInfo: Prescription(s) given Scripts Ondansetron (Zofran) 4 Mg Tab 4 MG PO Q6HR Y for NAUSEA OR VOMITING, #20 TAB 0 Refills Prov: Donita Diana MD 11/12/17 Pantoprazole (Protonix) 40 Mg Tab 40 MG PO DAILY for Reflux, #30 TAB 0 Refills Prov: Donita Diana MD 11/12/17 Disposition: 01 DISCHARGE HOME Condition: Stable Berry Boland November 12, 2017 19:00
[2017-11-12 19:10] LABS: AUTOMATED NEUTROPHIL # 6.3 TH/MM3 (1.8-7.7); BASOPHIL # 0.1 TH/MM3 (0-0.2); BASOPHIL % 0.6 % (0.0-2.0); EOSINOPHIL # 0.2 TH/MM3 (0-0.4); EOSINOPHIL % 2.1 % (0.0-4.0); HEMATOCRIT 37.8 % (35.0-46.0); HEMOGLOBIN 12.8 GM/DL (11.6-15.3); LYMPH % 25.3 % (9.0-44.0); LYMPHOCYTE # 2.4 TH/MM3 (1.0-4.8); MEAN CELL VOLUME 92.2 FL (80.0-100.0); MEAN CORPUSCULAR HEMOGLOBIN 31.1 PG (27.0-34.0); MEAN CORPUSCULAR HGB CONC 33.8 % (32.0-36.0); MEAN PLATELET VOLUME 7.4 FL (7.0-11.0); MONO % 6.9 % (0.0-8.0); MONOCYTE # 0.7 TH/MM3 (0-0.9); NEUT % 65.1 % (16.0-70.0); PLATELET COUNT 338 TH/MM3 (150-450); RED CELL DISTRIBUTION WIDTH 12.7 % (11.6-17.2); WHITE BLOOD COUNT 9.7 TH/MM3 (4.0-11.0)
[2017-11-12 19:16] VITALS: BP 118/57; PULSE 68; RESP 16; O2SAT 98
[2017-11-12 19:17] LABS: ALBUMIN 3.9 GM/DL (3.4-5.0); AST (GOT) 148 U/L (15-37); BICARBONATE 29.1 MEQ/L (21.0-32.0); BLOOD UREA NITROGEN 12 MG/DL (7-18); CALCIUM 9.3 MG/DL (8.5-10.1); CHLORIDE 102 MEQ/L (98-107); CREATININE 0.65 MG/DL (0.50-1.00); GLOMERULAR FILTRATION RATE 105 ML/MIN (>89); GLUCOSE,RANDOM 94 MG/DL (74-106); SODIUM (NA) 140 MEQ/L (136-145)
[2017-11-12 19:19] LABS: ALT (GPT) 116 U/L (10-53)
[2017-11-12 19:20] LABS: BILIRUBIN, URINE NEG (NEG); BLOOD, URINE NEG (NEG); GLUCOSE,URINE NEG (NEG); KETONE, URINE NEG (NEG); NITRITE,URINE NEG (NEG); SQUAMOUS EPITHELIAL CELL URINE <1 /hpf (0-5); URINE COLOR LIGHT-YELLOW (YELLW/STRAW); URINE LEUKOCYTE ESTERASE NEG (NEG)
[2017-11-12 19:21] LABS: ALKALINE PHOSPHATASE 107 U/L (45-117); TOTAL BILIRUBIN ADULT 0.5 MG/DL (0.2-1.0); TOTAL PROTEIN 7.8 GM/DL (6.4-8.2)
[2017-11-12] MEDS ORDERED: IOHEXOL 350 MG/ML 10 ML VIAL (for RAD DIAG) IVCONTRAST ONE (19:45)
--- NOTE | 2017-11-12 21:11 | RADRPT ---
EXAM DATE/TIME: 11/12/2017 19:54 [facility] COMPARISON: No previous studies available for comparison. INDICATIONS : Left side abdominal pain. IV CONTRAST: 90 cc Omnipaque 350 (iohexol) IV ORAL CONTRAST: No oral contrast ingested. RADIATION DOSE: 16.93 CTDIvol (mGy) MEDICAL HISTORY : Hypertension. Diverticulitis. SURGICAL HISTORY : Cholecystectomy. Tubal ligation. ENCOUNTER: Initial ACUITY: 2 weeks PAIN SCALE: 7/10 LOCATION: Left abdomen. TECHNIQUE: Volumetric scanning of the abdomen and pelvis was performed. Using automated exposure control and ad justment of the mA and/or kV according to patient size, radiation dose was kept as low as reasonably achievable to obtain optimal diagnostic quality images. DICOM format image data is available electro nically for review and comparison. FINDINGS: LOWER LUNGS: The visualized lower lungs are clear. LIVER: Diminished attenuation diffusely suggesting steatosis. No evidence of focal mass or biliary ductal di latation. Gallbladder surgically absent. SPLEEN: Normal size without lesion. PANCREAS: Within normal limits. KIDNEYS: Normal in size and shape. There is no mass, stone or hydronephrosis. ADRENAL GLANDS: Within normal limits. VASCULAR: There is no aortic aneurysm. BOWEL/MESENTERY: The stomach, small bowel, and colon demonstrate no acute abnormality. There is no free intraperitone al air or fluid. ABDOMINAL WALL: Within normal limits. RETROPERITONEUM: There is no lymphadenopathy. BLADDER: No wall thickening or mass. REPRODUCTIVE: Within normal limits. INGUINAL: There is no lymphadenopathy or hernia. MUSCULOSKELETAL: Within normal limits for patient age. CONCLUSION: No acute CT findings in the abdomen or pelvis. Joselito Peterson MD on November 12, 2017 at 21:06 Board Certified Radiologist. This report was verified electronically.
[2017-11-12] MEDS ORDERED: PROT40TA PO (21:16)
[2017-11-12] MEDS ORDERED: ZOFR4TAB PO (21:16)
== END 2017-11-12 21:32 | disposition home or self-care (01) ==
LOC: NEPE 18:16
DX: R10.9 Unspecified abdominal pain (principal); R74.8 Abnormal levels of other serum enzymes
CPT/HCPCS: 74177; 80053; 81001; 83690; 84703; 85025; 96361; 96374; 99285; C9113; J7030; Q9967